=== PATIENT | male | born 1955 | race Caucasian/White ===

== ENCOUNTER 2016-10-04 05:56 | Day surgery (SDC) | payer OTHER, BC ==
[~2016-10-04] VITALS: Ht 180.3 cm; Wt 90.7 kg
[~2016-10-04 05:56] MED LIST: AMBIEN10 MG PO; ATORVASTATIN CA20 MG PO; CIPRO500 MG PO; COLCHICINE,COL0.6 MG PO; COLCHICINE0.6 M1 PO; COUMADIN,JANTOV10 MG PO; COUMADIN10 MG PO; Coumadin PO; DILAUDID4 MG PO; DOXYCYCLINE HYC50 M1 PO; Desyrel PO; HALCION0.125 MG PO; HALCION0.25 MG PO; LINZESS145 MCG PO; MIRALAX, GLYCOL1 PK1 PO; MIRALAX17 GM PO; NAFCIL1 GM IV; NEXIUM20 MG PO; OxyCODONE PO; PAXIL10 MG PO; PAXIL20 MG PO; PERCOCET 10/1 TABLET PO; PERCOCET 5/31 TABLET PO; TRAZODONE HCL100 MG PO
[2016-10-04 06:35] VITALS: BP 118/79
[2016-10-04 06:49] LABS: PROTHROMBIN TIME 10.3 (9.2-11.2)
[2016-10-04 10:30] VITALS: BP 153/87
[2016-10-04 10:50] VITALS: BP 122/79
[2016-10-04 11:20] VITALS: BP 142/92
== END 2016-10-04 11:30 | disposition home or self-care (01) ==
LOC: SDC 05:56
PROVIDERS: Urology
DX: Z46.6 Encounter for fitting and adjustment of urinary device (principal); N13.5 Crossing vessel and stricture of ureter without hydronephrosis; Z87.442 Personal history of urinary calculi; C91.90 Lymphoid leukemia, unspecified not having achieved remission; Z86.718 Personal history of other venous thrombosis and embolism; Z79.01 Long term (current) use of anticoagulants; Z88.0 Allergy status to penicillin
CPT/HCPCS: 74420; 85610; C1876; J0330; J1100; J1170; J1335; J2250; J2405; J3010; J7050

== ENCOUNTER → 2016-11-04 | Outpatient (CLI) | payer OTHER, BC | END | disposition home or self-care (01) | LOC: NUC 10:53 | DX: Q62.11 Congenital occlusion of ureteropelvic junction (principal) | CPT/HCPCS: 78709; A9562 ==

== ENCOUNTER → 2017-03-08 | Outpatient (CLI) | payer MEDICARE, BC ==
[~2017-03-08] MED LIST changes: +APPLE CIDER VI500 MG PO; +LINZESS290 MCG PO; +NEXIUM40 MG PO
== END | disposition home or self-care (01) ==
LOC: CDC 08:39
DX: Z01.810 Encounter for preprocedural cardiovascular examination (principal)
CPT/HCPCS: 93000

== ENCOUNTER 2017-03-10 08:09 | Day surgery (SDC) | payer OTHER, BC ==
[~2017-03-10] VITALS: Ht 180.3 cm; Wt 88.5 kg
[2017-03-10 08:49] VITALS: BP 143/84
[2017-03-10 08:49] LABS: PROTHROMBIN TIME 10.6 (9.2-11.2)
[2017-03-10 11:30] VITALS: BP 117/78
== END 2017-03-10 12:10 | disposition home or self-care (01) ==
LOC: SDC → EDSTATUS 12:10 → SDC 12:11
PROVIDERS: Urology
DX: N13.2 Hydronephrosis with renal and ureteral calculous obstruction (principal); N40.1 Benign prostatic hyperplasia with lower urinary tract symptoms; N13.8 Other obstructive and reflux uropathy; R01.1 Cardiac murmur, unspecified; K21.9 Gastro-esophageal reflux disease without esophagitis; Z85.6 Personal history of leukemia; Z88.0 Allergy status to penicillin; Z79.01 Long term (current) use of anticoagulants; Z86.711 Personal history of pulmonary embolism; Z86.718 Personal history of other venous thrombosis and embolism
CPT/HCPCS: 74420; 85610; C1758; C1876; J0330; J0690; J1100; J1170; J1885; J2250; J2405; J2765; J3010; J7050

== ENCOUNTER → 2018-01-26 | Outpatient (CLI) | payer OTHER, BC | END | disposition home or self-care (01) | DX: R13.14 Dysphagia, pharyngoesophageal phase (principal); K21.9 Gastro-esophageal reflux disease without esophagitis; K22.70 Barrett's esophagus without dysplasia; Z87.01 Personal history of pneumonia (recurrent); Z85.6 Personal history of leukemia | CPT/HCPCS: 92611 GN; G8996 GN; G8997 GN; G8998 GN ==